=== PATIENT | male | born 1970 | race Caucasian/White ===

== ENCOUNTER → 2023-08-05 | Outpatient (CLI) | payer OTHER | END | disposition home or self-care (01) | LOC: LABPAT 10:08 | PROVIDERS: ATTEND Orthopaedic Surgery | DX: Z01.812 Encounter for preprocedural laboratory examination (principal); M47.22 Other spondylosis with radiculopathy, cervical region; M48.02 Spinal stenosis, cervical region; M54.2 Cervicalgia; Z22.322 Carrier or suspected carrier of Methicillin resistant Staphylococcus aureus | CPT/HCPCS: 36415; 86850; 86900; 86901; 87070 ==

== ENCOUNTER 2023-08-12 10:23 | Day surgery (SDC) | payer OTHER ==
[2023-08-05 14:00] VITALS: BMI 26.4
--- NOTE | 2023-08-12 08:20 | P.HPOR ---
History of Present Illness H&P Date: 09/05/23 .D:Date: 08/05/23 : 09:36am .T:Title: [facility] History and Physical Date of :[birth year] [id number]: NKDA Age: 53 year Height: 5'11" Weight: 190 lbs BMI: 26.50 kg/m2 Occupation: n/a VAS: 4 Hand:Right IMPRESSION: It was my pleasure to have seen and examined Gaeg. I reviewed the patient's clinical syndrome, physical findings, and imaging studies during the appointment today. It is my impression that the patient has a diagnosis of. 1. 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 Bilateral upper extremity radiculopathy 3. Bilateral upper extremity weakness 4. Cervicalgia I outlined the natural course history without intervention and various interventional options. Spine Surgery Risk Review Mr. Du is presenting for evaluation of neck and bilateral upper extremity pain, bilateral upper extremity numbness, tingling, and weakness. It was my pleasure to have seen and examined Mr. Du. In our visit today we have had a chance to go over subjective complaints, physical examination findings and treatments including the natural course history without intervention and various interventional options. The patients imaging demonstrates: XRay taken on of Cervical Spine: -Re-reviewed with the patient today. Demonstrate C5-6 and C6-7 spondylosis with disc height collapse. Some facet arthrosis. No fracture no lesions. C0-1 and C1-[address] [facility] Cervical Spine: -Re-reviewed with the patient today. Images reviewed demonstrate C5-C7 spondylosis with disc height collapse as well as facet arthropathy. There is local kyphosis at this level secondary to the collapse. There is disc herniation at both these levels causing moderate to severe central and bilateral foraminal stenosis [facility] of Cervical Spine: -Re-reviewed with the patient today. C5-6 large HNP with stenosis central and b/l foraminal C6-7 HNP with mild central and b/l foraminal stenosis remaining levels of normal height and hydration with no stenosis. No fracture No lesions On physical exam, Mr. Du demonstrates: A continued ache-like, burning pain throughout the neck that radiates down into the bilateral upper extremity with a sharp, shooting quality. He states his upper extremity pain is associated with numbness and tingling bilaterally. He notes progressive upper extremity weakness. The patient notes mildly decreased hand dexterity over the last 2 to 3 weeks. The patient states his current symptoms are exacerbated by all activity. He notes his current symptoms make it difficult for him to complete any of his activities of daily living. He reports experiencing severe sleep disturbances related to his ongoing pain and associated symptoms. I have explained to the patient that as their condition progresses it will cause further neurological deficits and eventual paralysis. Based on the patients imaging, physical exam, and the rapid progression and disabling nature of their symptoms, at this time I recommend surgery in the form of a: C5-7 ACDF. I discussed the risk and benefits of this procedure at length with Mr. Du. The patient agreed to considered pursuing the procedure abovementioned. Prior to surgery, she should follow up with her PCP (Cardio, ID, IM etc) for clearance. Questions were invited and answered, and the patient wishes to proceed as outlined below. Currently, I am recommendin.C5-7 ANTERIOR CERVICAL DISCECOMTY AND FUSION 3.Review of surgical risks and benefits as well as an educational packet on the proposed surgical procedure. Risks: All surgical procedures come with inherent risks, including those related to positioning, anesthesia, intraoperative findings, and postoperative compli cations. It is important to understand that surgery does not come with any guarantee of a successful outcome as complications and adverse events are always possible. The patient was given a handout in office today discussing the surgical procedure and risks associated with the intervention, both of which were discussed with the patient. These risks include but are not limited to the following: * Experiencing same, different or even worse symptoms in back, neck, arms, or legs compared to before surgery. Requiring further surgery or other forms of treatment presently or at some time in the future at same or other levels of the intended spine surgery. On an extreme but fortunately relatively rare basis severe complication such as blindness, stroke, heart attack, temporary and/or permanent nerve injury, paralysis, coma, or may occur, sometimes without known explanation. Surgical complications may include but are not limited to risk of infection, fluid accumulation in the surgical dissection site, including a seroma or hematoma, that requires additional surgery, wound drainage, bleeding, new numbness or weakness, vision changes/loss, spinal fluid leakage, non-healing and/or infected incision, headaches, difficulty or inability to swallow, hoarseness, hemopneumothorax, pneumothorax, impotence, retrograde ejaculation, vaginal dryness; injury to nerves, spinal cord, blood vessels, lymphatics or other vital organs (i.e., bowel injury, injury to the great vessels); heterotopic bone formation; complications related to the hardware such as screws, rods, cages including misplaced hardware, device failure, instrumentation at the wrong spine level, hardware fracture/breakage, or hardware loosening; vertebral failure of the spinal column above or below the newly placed hardware; retained surgical instrumentations or devices and the need for further surgery. * Medical risks of the planned spine surgery include but are not limited to generalized Infections to the whole body or local areas outside of the surgical site (sepsis), heart attack, bleeding, anaphylaxis, meningitis, seizure, epilepsy, hearing loss, burn john, laceration of the head or other areas of the body, bruising, hypersensitivity of the skin, bladder over distension; allergic reaction; shoulder injury related to positioning; fat, blood and air clots to other areas of the body like heart, lungs, brain; failure of internal organs such as lungs, kidneys, liver and excessive bleeding. If blood transfusions are necessary, note that transfusions may cause intolerance reactions such as anaphylaxis or other complex reactions. Despite best efforts, the results of spine surgery might not heal in terms of bone, soft tissues such as skin, fascia, ligaments, and joints. Additionally, in order to achieve best possible results, spine surgery may be carried out beyond the initially planned levels and involve decompression, fusion including insertion of hardware at levels other than the original intended area of surgical interest change some portions of the procedure in order to ensure the best possible outcomes. With spine surgery and spinal fusion, there are different off label uses of inst rumentation (devices, implants and hardware) as well as biological substances (bone morphogenic proteins, demineralized bone matrix) as well as using extra bone from allograft sources (i.e. cadaver bone) or autograft (iliac crest bone, ribs, or the spine itself). The patient has been given information about these practices and their inherent risks and benefits. [facility] is an educational center that serves as a training facility for neurosurgical and orthopedic [employer] and Nursing students. Physician assistants are medically trained surgical providers who function in the outpatient, inpatient, and operating room setting under the direct supervision of the attending surgeon. [facility] has multiple operating rooms with single and overlapping rooms running daily. They currently function under the required guidelines as produced by the [facility] with regards to the overlapping rooms and will continue to comply with changes to this policy as they occur. The requirements include and are complied with as follows: (1) the critical portions of the overlapping rooms will not occur at the same time, (2) the attending physician will be physically present during the critical portions of the procedure and immediately available during the entire case, and (3) a back-up attending is designated should the primary attending not be immediately available. The patient has had a chance to review all the listed information, has been given print outs detailing this information, and has had all his/her questions answered to their satisfaction. It was my pleasure to have seen and examined Mr. Du. In our visit today we have had a chance to go over my understanding of our patient's current condition, the natural course history without intervention and various interventional options. Questions were invited and answered, and the patient wishes to proceed as outlined above. I have seen and examined the patient for 25 minutes and we have spent more than 50% of the time in repeat and detailed counseling about the patient's condition, its natural course history with out and as much as can be predicted with surgery and re-review of various surgical treatment options. In conclusion, Mr. Du requested we proceed with the above suggested surgery and are willing to accept risks and limitations of the suggested surgery as nature of the disease process and our best attempts at treatment for the condition. Thank you again for allowing us to be part of your patient's care. Please don't hesitate to contact me if you have any further questions. Follow- up: Post procedure Patient Education: (Informational booklet, instructions, etc) given at today's appointment: Yes .ED:Patient Education: Y Plan at next visit: X-ray (AP & Lat) Cervical Spine Medications Reviewed: YES In our visit today Mr. Du and I have had a chance to go over my understanding of the patient's current condition, the natural course history without intervention and various interventional options. Questions were invited and answered, and the patient wishes to proceed as outlined above. I will be sure to keep you updated afterMr. Du returns here for further follow-up. Thank you again for your referral. Please do not hesitate to contact me if you have any further questions. Signed and authenticated by: Scot Pritchard [facility] [address] [place] [address] This message is confidential, intended only for the named recipient(s) and may contain information that is privileged or exempt from disclosure under applicable law. If you are not the intended recipient(s), you are notified that the dissemination, distribution or copying of this information is strictly prohibited. If you received this message in error, please notify the sender then delete this message. Patient verbalizes understanding of the information discussed. The above note was initiated by Shanelle Hernandez, physician recording psychiatric assistant for Dr. Scot Crews. This note has been reviewed by Dr. Crews, who has made his personal changes and impressions for this document. CC: DO Jairo Hernández # SIGNED BY Scot Crews (GOO)08/10/2023 08:09AM Past Medical History Past Medical History: COPD, Hypertension, Musculoskeletal Disorder, Osteoa rthritis (OA) Additional Past Medical History / Comment(s): Degenerative bone disease. History of Any Multi-Drug Resistant Organisms: None Reported Past Surgical History: No Surgical Hx Reported Additional Past Surgical History / Comment(s): Colonoscopy. Past Anesthesia/Blood Transfusion Reactions: No Reported Reaction Past Psychological History: No Psychological Hx Reported Smoking Status: Former smoker Past Alcohol Use History: Occasional Additional Past Alcohol Use History / Comment(s): "Quit smoking one month ago, smoked on and off most of my life." Past Drug Use History: Marijuana Additional Drug Use History / Comment(s): Marijuana gummies daily. aawre no use 24 hrs prior to procedure. - Past Family History Father Family Medical History: Cancer Additional Family Medical History / Comment(s): Neck cancer. Sister(s) Family Medical History: Cancer Additional Family Medical History / Comment(s): Breast cancer. Brother(s) Family Medical History: Cancer Additional Family Medical History / Comment(s): Neck cancer. Medications and Allergies Home Medications Medication Instructions Recorded Confirmed Type Albuterol Sulfate [Ventolin HFA] 2 puff INHALATION Q4-6H PRN 08/05/23 08/05/23 History Budesonide/Glycopyr/Formoterol 2 puff INHALATION BID 08/05/23 08/05/23 History [Breztri Aerosphere Inhaler] Cyclobenzaprine [Flexeril] 10 mg PO HS 08/05/23 08/05/23 History Gabapentin [Neurontin] 100 mg PO BID 08/05/23 08/05/23 History HYDROcodone/APAP 10-325MG [[place] 1 tab PO QID PRN 08/05/23 08/05/23 History 10-325] Losartan Potassium [Cozaar] 100 mg PO DAILY 08/05/23 08/05/23 History hydroCHLOROthiazide 25 mg PO DAILY 08/05/23 08/05/23 History Allergies Allergy/AdvReac Type Severity Reaction Status Date / Time No Known Allergies Allergy Verified 08/05/23 13:13 Physical Examination Osteopathic Statement: *. No significant issues noted on an osteopathic structural exam other than those noted in the History and Physical/Consult.
[~2023-08-12 10:23] MED LIST: ACETAMINOPHEN TAB 500 MG TAB PO PRN; GABAPENTIN 300 MG CAP PO PRN; LIDOCAINE 1% (10MG/ML) FOR IV START INTRADERMA PRN; MIDAZOLAM 2 MG/2 ML VIAL IV PRN; ONDANSETRON 4 MG/2 ML VIAL IVP PRN; TRANEXAMIC 1,000 MG/100ML-NACL 1,000 MG in SALINE 1 100ML.BAG IVPB PRN
[2023-08-12] MEDS: LACTATED RINGERS 1,000 ML IV SCH ×4 (11:17→20:23)
[2023-08-12] MEDS: ONDANSETRON 4 MG/2 ML VIAL IVP ONE ×2 (11:39→16:38)
[2023-08-12] MEDS: DEXAMETHASONE SOD PHOSPHATE 4 MG/ML 1 ML VIAL IV ONE ×2 (11:39→16:38)
[2023-08-12] MEDS ORDERED: ROCURONIUM 10 MG/ML (5 ML VIAL) IV ONE (12:36)
[2023-08-12] MEDS ORDERED: MIDAZOLAM 2 MG/2 ML VIAL ONE (12:36)
[2023-08-12] MEDS ORDERED: HYDROmorphone (PF) 1 MG/ML ONE (12:36)
[2023-08-12] MEDS ORDERED: LIDOCAINE 1% INJ 10MG/ML (20 ML MDV) ONE (12:36)
[2023-08-12] MEDS ORDERED: PHENYLEPHRINE 10 MG/ML VIAL ONE (12:36)
[2023-08-12] MEDS ORDERED: KETAMINE HCL IN 0.9 % NACL 50 MG/5 ML SYRINGE ONE (12:36)
[2023-08-12] MEDS ORDERED: TRANEXAMIC 1,000 MG/100ML-NACL PREMIX BAG ONE (12:36)
[2023-08-12] MEDS ORDERED: PROPOFOL 10 MG/ML 20 ML VIAL IV ONE (12:36)
[2023-08-12] MEDS ORDERED: SUCCINYLCHOLINE CHLORIDE 200 MG/10 ML VIAL IV ONE (12:36)
[2023-08-12] MEDS ORDERED: fentaNYL (PF) 50 MCG/ML 2 ML AMP ONE (12:36)
[2023-08-12] MEDS ORDERED: GELATIN SPONGE,ABSORB (LARGE) 1 EACH SPONGE TOPICAL ONE (13:13)
[2023-08-12] MEDS ORDERED: THROMBIN (BOVINE) 5,000 UNIT VIAL TOPICAL ONE (13:13)
--- NOTE | 2023-08-12 14:55 | XR ---
Fluoroscopy History: C5-C7 Fusion C5-C7 fusion with [place]. 20 sec fluoro time. 6 images saved. .2680 DAP
[2023-08-12] MEDS ORDERED: ONDANSETRON 4 MG/2 ML VIAL IVP PRN (15:07)
[2023-08-12] MEDS ORDERED: MAGNESIUM HYDROXIDE 2,400 MG/30 ML CUP PO PRN (15:07)
[2023-08-12] MEDS ORDERED: HYDROmorphone 0.5 MG/0.5 ML SYRINGE IVP PRN (15:07)
--- NOTE | 2023-08-12 15:14 | FL ---
Fluoroscopy History: C5-C7 Fusion C5-C7 fusion with [place]. 20 sec fluoro time. 6 images saved. .8890 DAP
[2023-08-12] MEDS: HYDROmorphone 0.5 MG/0.5 ML SYRINGE IVP PRN ×3 (15:15→15:44)
[2023-08-12] MEDS: CYCLOBENZAPRINE 5 MG TAB PO PRN ×2 (16:08→22:08)
[2023-08-12] MEDS: HYDROmorphone 1 MG/ML 1 ML SYRINGE IVP PRN ×2 (17:25→22:08)
[2023-08-12] MEDS: HYDROcodone/APAP 10-325MG 1 EACH TAB PO PRN (20:19)
--- NOTE | 2023-08-13 00:22 | P.CONS ---
History of Present Illness - Reason for Consult Consult date: 08/12/23 - History of Present Illness Patient is a 53-year-old male with a PMH of hypertension who was admitted for an elective cervical anterior discectomy and fusion. The patient underwent the procedure earlier today and was seen postoperatively on the surgical unit. He reported excellent control of his pain, rated at a 1 out of 10 at the time of interview. He denies any additional complaints. Denied experiencing weakness, numbness, tingling. Also denied chest discomfort, shortness of breath, fever, chills, cough, nausea, vomiting, abdominal pain, diarrhea. Reports compliance with his medications at home. Review of systems: Pertinent positives and negatives as discussed in HPI, a complete review of systems was performed and all other systems are negative. Physical examination: Vital signs reviewed General: non toxic, no distress, appears at stated age, normal weight Derm: no unusual rashes/lesions, warm Head: atraumatic, normocephalic, symmetric Eyes: EOMI, no lid lag, anicteric sclera, pupils equal round reactive to light ENT: Nose and ears atraumatic Neck: Neck brace in place with right anterior neck dressing clean and dry Mouth: no lip lesion, mucus membranes moist Cardiovascular: S1S2 reg, no murmur, positive dorsalis pedis pulse bilateral, no edema Lungs: CTA bilateral, no rhonchi, no rales, no accessory muscle use Abdominal: soft, nontender to palpation, no guarding Ext: muscle strength 5 out of 5 in all 4 extremities grossly, no gross muscle atrophy, no contractures, Neuro: CN II-XI grossly intact, no gross focal neuro deficits Psych: Alert, oriented, appropriate affect Assessment: Chronic conditions: Hypertension Status post anterior cervical discectomy and fusion Plan: Continue with patient's home antihypertensives Defer management of pain control and DVT prophylaxis to the primary surgery service We appreciate this opportunity to be involved in this patient's care. We will follow the patient with you. For any further questions, please not hesitate to contact the sound inpatient team. Past Medical History Past Medical History: COPD, Hypertension, Musculoskeletal Disorder, Osteoarthritis (OA) Additional Past Medical History / Comment(s): Degenerative bone disease. History of Any Multi-Drug Resistant Organisms: None Reported Past Surgical History: No Surgical Hx Reported Additional Past Surgical History / Comment(s): Colonoscopy. Past Anesthesia/Blood Transfusion Reactions: No Reported Reaction Past Psychological History: No Psychological Hx Reported Smoking Status: Former smoker Past Alcohol Use History: Occasional Additional Past Alcohol Use History / Comment(s): "Quit smoking one month ago, smoked on and off most of my life." Past Drug Use History: Marijuana Additional Drug Use History / Comment(s): Marijuana gummies daily. aawre no use 24 hrs prior to procedure. - Past Family History Father Family Medical History: Cancer Additional Family Medical History / Comment(s): Neck cancer. Sister(s) Family Medical History: Cancer Additional Family Medical History / Comment(s): Breast cancer. Brother(s) Family Medical History: Cancer Additional Family Medical History / Comment(s): Neck cancer. Medications and Allergies Home Medications Medication Instructions Recorded Confirmed Type Albuterol Sulfate [Ventolin HFA] 2 puff INHALATION Q4-6H PRN 08/05/23 08/12/23 History Budesonide/Glycopyr/Formoterol 2 puff INHALATION BID 08/05/23 08/12/23 History [Breztri Aerosphere Inhaler] Cyclobenzaprine [Flexeril] 10 mg PO HS 08/05/23 08/12/23 History Gabapentin [Neurontin] 100 mg PO BID 08/05/23 08/12/23 History HYDROcodone/APAP 10-325MG [[place] 1 tab PO QID PRN 08/05/23 08/12/23 History 10-325] Losartan Potassium [Cozaar] 100 mg PO DAILY 08/05/23 08/12/23 History hydroCHLOROthiazide 25 mg PO DAILY 08/05/23 08/12/23 History HYDROcodone/APAP 7.5-325MG [[place] 1 tab PO TID PRN 08/12/23 08/12/23 History 7.5-325] Allergies Allergy/AdvReac Type Severity Reaction Status Date / Time No Known Allergies Allergy Verified 08/12/23 11:31 Physical Exam Vitals: Vital Signs Temp Pulse Pulse Resp BP BP Pulse Ox 08/12/23 21:07 98.3 F 71 18 145/88 96 08/12/23 19:54 98.3 F 71 18 145/88 94 L 08/12/23 17:36 77 155/93 97 08/12/23 17:35 74 143/109 93 L 08/12/23 17:34 73 160/108 95 08/12/23 17:07 88 139/83 95 08/12/23 15:49 81 16 96 08/12/23 15:34 81 16 157/81 97 08/12/23 15:19 80 16 157/88 98 08/12/23 15:04 97.3 F L 80 16 159/89 99 08/12/23 12:05 77 16 109/59 94 L 08/12/23 11:15 98.1 F 67 16 119/65 96 Intake and Output 08/12/23 08/12/23 08/13/23 14:59 22:59 06:59 Intake Total 1450 150 Output Total 170 350 Balance 1280 -200 Intake: IV 1450 150 Output: Urine 120 350 Estimated Blood Loss 50 Other: Voiding Method Toilet Weight 86 kg 86 kg
--- NOTE | 2023-08-13 00:49 | CT ---
EXAMINATION TYPE: CT cervical spine wo con DATE OF EXAM: 08/13/2023 COMPARISON: CT cervical spine April 06, 2023 HISTORY: Post surg. C5-C7. CT DLP: 386.7 mGycm. Automated Exposure Control for Dose Reduction was Utilized. TECHNIQUE: CT scan of the cervical spine is obtained without contrast, axial images are obtained, sa gittal and coronal reformatted images are also reviewed. FINDINGS: Cervical spine is visualized in its entirety from C1 through upper thoracic levels, demonst rates new surgical change with metallic disc material and fusion hardware involving the C5-C6 and C6- C7 vertebral body levels. Vertebral body heights and disc space heights are maintained above and belo w the surgical levels. Surgical hardware position is satisfactory. Evidence of recent surgery with bojorquez bcutaneous gas along the right aspect of the neck. There is percutaneous surgical drainage catheter t erminating at level of the C5-C6 disc space level in the right neck axial image 86. Spinal canal is g rossly preserved. Lung apices are clear without pneumothorax. Improved alignment after surgical duval e noted. IMPRESSION: Post surgical change as detailed above. Hardware position felt satisfactory.
[2023-08-13] MEDS: HYDROmorphone 1 MG/ML 1 ML SYRINGE IVP PRN ×2 (03:19→08:37)
[2023-08-13] MEDS: HYDROcodone/APAP 10-325MG 1 EACH TAB PO PRN ×2 (05:54→12:29)
[2023-08-13] MEDS: CYCLOBENZAPRINE 5 MG TAB PO PRN (05:55)
[2023-08-13 07:07] LABS: Basophils % (A) 0 %; Eosinophils % (A) 0 %; HCT 42.3 % (39.0-53.0); HGB 14.7 gm/dL (13.0-17.5); Lymphocytes # (A) 1.6 k/uL (1.0-4.8); Lymphocytes % (A) 9 %; MCH 31.2 pg (25.0-35.0); MCHC 34.8 g/dL (31.0-37.0); MCV 89.7 fL (80.0-100.0); Mean Platelet Volume 10.5; Monocytes # (A) 0.8 k/uL (0-1.0); Monocytes % (A) 5 %; Neutrophils # (A) 14.6 k/uL (1.3-7.7); Neutrophils % (A) 83 %; Platelet Count 195 k/uL (150-450); RBC 4.72 m/uL (4.30-5.90); RDW 12.3 % (11.5-15.5); WBC 17.6 k/uL (3.8-10.6)
--- NOTE | 2023-08-13 07:19 | P.OP ---
Date of Procedure: 08/12/23 Preoperative Diagnosis: 1. C5-7 spondylosis with stenosis 2. C5-6 and C6-7 HNP with stenosis and radiculopathy 3. UE radiculopathy 4. UE weakness Postoperative Diagnosis: 1. C5-7 spondylosis with stenosis 2. C5-6 and C6-7 HNP with stenosis and radiculopathy 3. UE radiculopathy 4. UE weakness Procedure(s) Performed: 1. C5-6 anterior interbody arthrodesis 2. C6-7 anterior interbody arthrodesis 3. C5-6 and C6-7 insertion of biomechanical device 4. Placement of anterior instrumentation achoring screws C5-6 and C6-7 use of IONM Use of IO microscope Implants: 4 senior anterior cervical interbody spacers x2 magnatos 3.5x14 anterior instrumenting anchors x4 Anesthesia: MILLIE Surgeon: Scot Crews Tool Design Drafter #1: Emi Campo (WAS PRESENT AND ASSISTED WITH ALL ASPECTS OF THE CASE FROM POSITION TO CLOSURE) Estimated Blood Loss (ml): 25 IV fluids (ml): 1,400 Urine output (ml): 250 Pathology: none sent Condition: stable Disposition: PACU Indications for Procedure: Mr. Du is presenting for evaluation of neck and bilateral upper extremity pain, bilateral upper extremity numbness, tingling, and weakness. It was my pleasure to have seen and examined Mr. Du. In our visit today we have had a chance to go over subjective complaints, physical examination findings and treatments including the natural course history without intervention and various interventional options. The patients imaging demonstrates: XRay taken on of Cervical Spine: -Re-reviewed with the patient today. Demonstrate C5-6 and C6-7 spondylosis with disc height collapse. Some facet arthrosis. No fracture no lesions. C0-1 and C1-[address] [facility] of Cervical Spine: -Re-reviewed with the patient today. Images reviewed demonstrate C5-C7 spondylosis with disc height collapse as well as facet arthropathy. There is local kyphosis at this level secondary to the collapse. There is disc herniation at both these levels causing moderate to severe central and bilateral foraminal stenosis [facility] of Cervical Spine: -Re-reviewed with the patient today. C5-6 large HNP with stenosis central and b/l foraminal C6-7 HNP with mild central and b/l foraminal stenosis remaining levels of normal height and hydration with no stenosis. No fracture No lesions On physical exam, Mr. Du demonstrates: A continued ache-like, burning pain throughout the neck that radiates down into the bilateral upper extremity with a sharp, shooting quality. He states his upper extremity pain is associated with numbness and tingling bilaterally. He notes progressive upper extremity weakness. The patient notes mildly decreased hand dexterity over the last 2 to 3 weeks. The patient states his current symptoms are exacerbated by all activity. He notes his current symptoms make it difficult for him to complete any of his activities of daily living. He reports experiencing severe sleep disturbances related to his ongoing pain and associated symptoms. I have explained to the patient that as their condition progresses it will cause further neurological deficits and eventual paralysis. Based on the patients imaging, physical exam, and the rapid progression and disabling nature of their symptoms, at this time I recommend surgery in the form of a: C5-7 ACDF. I discussed the risk and benefits of this procedure at length with Mr. Du. The patient agreed to considered pursuing the procedure abovementioned. Prior to surgery, she should follow up with her PCP (Cardio, ID, IM etc) for clearance. Questions were invited and answered, and the patient wishes to proceed as outlined below. Currently, I am recommendin.C5-7 ANTERIOR CERVICAL DISCECOMTY AND FUSION Description of Procedure: C5-7 ACDF (Stand Alone) The patient was seen and examined in the preoperative area. All preoperative protocols were followed. Informed consent was obtained, risks and benefits of the procedure were discussed at length. Risks including bleeding infection damage to the surrounding tissue and risk of reoperation were discussed with the patient. Risk of anesthesia up to and including was discussed with the patient. These are outlined in the risk review. They were willing to accept these risks and all the risks of surgery. The patient was given a weight-based dose of antibiotics in the form of 2 g Ancef. The patient was seen and evaluated by the anesthesia team who deemed them fit for surgery. The site was marked, the patient was willing to proceed with the procedure. The patient was transferred to the operative suite by the Department of anesthesia. They were then drifted off to sleep by the department anesthesia and GETA was performed. The patient tolerated this well. Lyle catheter was placed by nursing staff, a-traumatically. Once confirmation of lines and ventilation the patient was transferred to a Supine Emmett table very carefully. All bony prominences including wrists, elbows, axilla, chest, hips, and thighs, and feet were padded very well. Special attention was paid to the genitalia, and these were padded accordingly. SCDs were placed on bilateral lower extremities and were connected. Arms were well padded and placed at their side thumbs up. Once in position, again we confirmed good ventilation capabilities and that lines were running appropriately. The patients Cervical spine was then exposed. 1010s were placed outlining the incision site. Standard alcohol was used to clean the incision site and allowed to dry. C-arm was used to bio-tita the patient and confirm level for incision which was marked with a skin marker. Operative briefing was performed with all teams and everyone in agreement to proceed. The patient was then prepped and draped in a normal sterile fashion. Timeout was then performed, and all parties agreed with the procedure to be performed. Transverse skin incision was then made on the right side of the patient's neck 3 cm and dissection taken down to the platysma which was split transversely. Sub platysma flap was made, and interval identified between SCM and medial structures. Omohyoid was visualized and protected. Blunt dissection taken down to the anterior cervical fascia which was identified. Blunt probe was then placed and lateral image taken which confirmed levels for operation. These levels were then marked with a bovi. Subperiosteal dissection of the longissimus muscles were then done over these levels identifying uncovertebral joints bilaterally. Retractor was then placed deep to these muscles and held in place with a bed arm. Starting at C6-7, Sumner pins were placed into C6 and C7 and gentle distraction taken out over the levels. Maureen rongeur used to remove disc material. Operating microscope brought in for visualization. Complete discectomy performed at this level with curette, rongure and pituitary. High speed donnie used to remove osteophytes anteriorly and posteriorly until PLL was identified. 6-0 up curette then used to identify the canal and resect the PLL. 2-0 and 3-0 Kerrison used then to remove PLL and disc herniation and performed b/l foraminotomies. Once good decompression was accomplished, meticulous hemostasis was performed. Sizers were then placed under lateral fluoroscopy until the desired height and lordosis. Cage was then selected, packed with autograft and allograft and placed under lateral imaging. Once in good position it was tested and stable. Motors run before and after cage placement were stable. The wound was irrigated, and autograft placed lateral to the cage anteriorly for fusion. Sumner pin was then removed from C7 and placed into C5. Gentle distraction taken out over C5-6 now. Complete discectomy done at C5-6 as described including decompression, b/l foraminotomies and PLL resection. Burring of endplates was minimal, osteophytes removed as described. Spacers were then sized and placed under lateral imaging. Cage selected, packed with graft and placed under lateral images. Once in position, meticulous hemostasis performed, and motors remained stable before and after cage placement. AP image confirmed good placement of cages. Wound was irrigated. After each cage placement, anterior instrumenting screws were placed through the cage with good purchase using lateral imaging. The screws were placed inferiorly and superiorly and locked. All locking mechanisms were set, and all screws had good purchase. Final AP and lateral images taken confirmed good placement of hardware and good reduction and buddhist of height. The wound was then irrigated copiously with NSS. Surgicel placed deep in the wound. A deep drain placed out a separate incision and sewed into place. Layered closure then performed with 3-0 Vicryl in the platysma and subQ tissue. 4-0 Strata fix in the subcuticular tissue. The wound was then cleaned, and dried and skin glue placed. Once glue dried on Opifoam was placed. The patient was then transferred back to their hospital bed a-traumatically. The drain continued to hold suction. They were placed in a soft collar. They were then awakened by the department of anesthesia having tolerated the procedure well without complications.
[2023-08-13 07:50] VITALS: BP 136/86; PULSE 77; RESP 17; TEMP 98.5
[2023-08-13 08:04] LABS: African American GFR (CKD) >90 (>60 ml/min/1.73 sqM); Anion Gap 8 mmol/L; Blood Urea Nitrogen 14 mg/dL (9-20); Calcium 8.7 mg/dL (8.4-10.2); Carbon Dioxide 26 mmol/L (22-30); Chloride 99 mmol/L (98-107); Glucose 96 mg/dL (74-99); Non-African American GFR(CKD) >90 (>60 ml/min/1.73 sqM); Potassium 3.9 mmol/L (3.5-5.1); Sodium 133 mmol/L (137-145)
[2023-08-13] MEDS ORDERED: hydroCHLOROthiazide 25 MG TAB PO SCH (09:00)
[2023-08-13] MEDS ORDERED: NON FORMULARY DRUG (Budesonide/Glycopyr/Formoterol [Breztri Aerosphere Inhaler] 10.7 GM Gm INHALATION SCH (09:00)
[2023-08-13] MEDS ORDERED: SENNOSIDES-DOCUSATE SODIUM 1 EACH TAB PO SCH (09:00)
[2023-08-13] MEDS ORDERED: LOSARTAN 50 MG TAB PO SCH (09:00)
--- NOTE | 2023-08-13 12:20 | P.PN ---
Subjective Progress Note Date: 08/13/23 Principal diagnosis: 1. 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 Bilateral upper extremity radiculopathy 3. Bilateral upper extremity weakness 4. Cervicalgia Patient seen and examined this morning. Patient is resting comfortably in bed. Patient states that his pain has been controlled on current regimen. Surgical incision to the anterior cervical spine is well-approximated with glue intact. EDILSON drain has been removed. New surgical dressing has been applied. Patient does report improvement of his bilateral upper extremity symptoms since the procedure. Patient is looking forward to being discharged later today. Continue to encourage patient to use incentive spirometer. No acute concerns. Objective - Vital Signs Vital signs: Vital Signs Temp 98.5 F 08/13/23 06:59 Pulse 77 08/13/23 06:59 Resp 17 08/13/23 06:59 BP 136/86 08/13/23 06:59 Pulse Ox 98 08/13/23 06:59 FiO2 Intake & Output 08/12/23 08/13/23 08/13/23 18:59 06:59 18:59 Intake Total 1600 Output Total 520 Balance 1080 Weight 86 kg Intake: IV 1600 Output: Urine 470 Estimated Blood Loss 50 Other: Voiding Method Toilet Toilet # Voids 2 - Exam Inspection: Negative for any open fractures, ecchymosis, significant erythema/ulcers. Surgical incision to the anterior cervical spine, edges are well-approximated with glue intact. EDILSON drain has been removed, new surgical dressing applied. Sensation: Sensation is equal, symmetric, bilaterally intact throughout the upper and lower extremities Palpation: Nontender to palpation throughout bilateral upper and lower extremiti es and throughout spine exam Range of motion: Patient does have full range of motion bilateral upper and lower extremities on exam Motor: 4/5 in all major motor groups in the bilateral upper and 5/5 in lower extremities Special tests: Negative Homans bilaterally. Negative Erich bilaterally. Negative clonus bilaterally. Neurovascular: Radial pulse intact, 2+ bilaterally. Cap refill under 3 seconds in digits upper extremities. - Labs CBC & Chem 7: 08/13/23 06:10 08/13/23 06:10 Labs: Abnormal Lab Results - Last 24 Hours (Table) 08/13/23 08/13/23 Range/Units 06:10 06:10 WBC 17.6 H (3.8-10.6) k/uL Neutrophils # 14.6 H (1.3-7.7) k/uL Sodium 133 L (137-145) mmol/L Assessment and Plan Assessment: Postop day 1: C5-C7 ACDF 1. 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 Bilateral upper extremity radiculopathy 3. Bilateral upper extremity weakness 4. Cervicalgia Plan: -Appreciate weight loss consultant and team management. -Activity: Ambulate QID, OOB all meals, up and about, limit lifting bending twisting to less than 5 lbs. Use walker or cane if needed for stability. -Daily PT/OT, increase ambulation strength and balance. -Hard cervical collar when up and about, soft cervical collar may be worn at night. Will reevaluate at 2-week postop appointment -Pain control: Adequate at this time -Meds: reviewed -GI ppx: senna, Miralax -DVT PPX: OK to restart Heparin tonight -Hygiene: Shower today. Maintain dressing clean and dry. -Encourage IS 10x/hr -Dispo: Anticipate discharge home today *I reviewed and discussed this case with my attending Dr. Crews, whom has reviewed this chart and films and is in agreement with assessment and plan of care as outlined above. I have personally seen and examined the patient, performed the documentation and the assessment and plan as written. Number of minutes spent on the visit: 20m.
--- NOTE | 2023-08-13 12:26 | P.PN ---
Subjective Progress Note Date: 08/13/23 Patient is a 53-year-old male with a PMH of hypertension who was admitted for an elective cervical anterior discectomy and fusion. Underwent surgery on 08/12. [facility] consulted for medical management of this patient. 08/13 Patient was seen and examined. Upset that people keep waking him up. Reports moderate pain in his neck. Last used Dilaudid at 8:37AM. CBC WBC 17.6. BMP Na 133. General: Non toxic, no distress, appears at stated age Derm: Warm, dry Head: Atraumatic, normocephalic, symmetric, C-spine collar intact Eyes: EOMI, no lid lag, anicteric sclera Mouth: No lip lesion, mucus membranes moist Cardiovascular: good distal perfusion in all 4 extremities Lungs: breathing comfortably, no accessory muscle use Ext: No gross muscle atrophy, no edema, no contractures Neuro: no focal neuro deficits Psych: Alert and oriented x 3 Based on my assessment of this patient, this patient meets a moderate complexity level of care. Patient has a chronic diagnosis of HTN and COPD. Leukocytosis: Probably reactive. No signs of active infection. Monitor fever profile. HypoNa: Mild. Encourage hydration by mouth. HTN: Continue Losartan 100 mg PO QD, HCTZ 25 mg PO QD. COPD: Albuterol INH PRN for SOB/wheezing. Restart Breztri INH on discharge. Medically stable for discharge. CODE STATUS: FULL CODE. DVT Prophylaxis: SCD GI Prophylaxis: Designated medical POA if patient is not able to make medical decisions for themselves: I have reviewed the following technology methodology consultant notes: Ortho note. I have reviewed the results of the following tests: CBC, BMP. I have ordered the following tests: I have discussed the care of this patient with the following independent historian: I have independently interpreted the following test below: I have discussed the management of this patient with the following physician: Objective - Vital Signs Vital signs: Vital Signs Temp 98.5 F 08/13/23 06:59 Pulse 77 08/13/23 06:59 Resp 17 08/13/23 06:59 BP 136/86 08/13/23 06:59 Pulse Ox 98 08/13/23 06:59 FiO2 Intake & Output 08/12/23 08/13/23 08/13/23 18:59 06:59 18:59 Intake Total 1600 Output Total 520 Balance 1080 Weight 86 kg Intake: IV 1600 Output: Urine 470 Estimated Blood Loss 50 Other: Voiding Method Toilet Toilet # Voids 2 - Labs CBC & Chem 7: 08/13/23 06:10 08/13/23 06:10 Labs: Abnormal Lab Results - Last 24 Hours (Table) 08/13/23 08/13/23 Range/Units 06:10 06:10 WBC 17.6 H (3.8-10.6) k/uL Neutrophils # 14.6 H (1.3-7.7) k/uL Sodium 133 L (137-145) mmol/L
--- NOTE | 2023-08-13 14:52 | P.DS ---
Providers Date of admission: 08/12/23 Expected date of discharge: 08/13/23 Attending physician: Scot Crews DO Consults: 08/12/23 15:12 Consult Physician Routine Consulting Provider: Brenda Montero Consult Reason/Comments: Medical Management Do you want consulting provider notified?: Yes Primary care physician: Jairo Liu DO Hospital Course: Hospital Course: The patient was evaluated preoperatively and found to have the diagnosis of cervical spondylosis with stenosis. They underwent appropriate preoperative care and were willing to undergo the intended procedure. They underwent a successful C5-C7 ACDF, were recovered appropriately and sent to the floor. While on the floor they worked with physical therapy, occupational therapy and nursing to enhance their recovery experience. Their pain was well controlled through their stay and they were started on appropriate medications, DVT ppx modalities, activity and dietary needs. Daily labs were monitored closely, and transfusions were only used when necessary. Medicine as well as other consulting services have made their input and have helped with our team approach and multidisciplinary care. PT milestones have been met and passed and they have made the recommendation of home for this patient and treating providers agree with this care path. The patient will be discharged home with appropriate me dications, instructions and follow-up information and in stable condition. Patient Condition at Discharge: Good Plan - Discharge Summary Discharge Rx Participant: Yes New Discharge Prescriptions: New cefaDROXiL [Duricef] 500 mg PO Q12HR #10 cap Cyclobenzaprine [Flexeril] 10 mg PO TID PRN #60 tab PRN Reason: Muscle Spasm oxyCODONE HCL [oxyCODONE HCL (IR)] 5 mg PO Q4H PRN #40 cap PRN Reason: Pain Ondansetron [Zofran] 4 mg PO Q8HR PRN #10 tab PRN Reason: Nausea Sennosides/Docusate Sodium [Senna Plus 8.6-50 mg Tablet] 1 each PO DAILY PRN #20 tablet PRN Reason: Constipation Continue Cyclobenzaprine [Flexeril] 10 mg PO HS Losartan Potassium [Cozaar] 100 mg PO DAILY Gabapentin [Neurontin] 100 mg PO BID HYDROcodone/APAP 7.5-325MG [Nelson 7.5-325] 1 tab PO TID PRN PRN Reason: Pain hydroCHLOROthiazide 25 mg PO DAILY Budesonide/Glycopyr/Formoterol [Breztri Aerosphere Inhaler] 2 puff INHALATION BID Albuterol Sulfate [Ventolin HFA] 2 puff INHALATION Q4-6H PRN PRN Reason: Shortness Of Breath HYDROcodone/APAP 10-325MG [[place] 10-325] 1 tab PO QID PRN PRN Reason: Pain Discharge Medication List Albuterol Sulfate [Ventolin HFA] 2 puff INHALATION Q4-6H PRN 08/05/23 [History] Budesonide/Glycopyr/Formoterol [Breztri Aerosphere Inhaler] 2 puff INHALATION BID 08/05/23 [History] Cyclobenzaprine [Flexeril] 10 mg PO HS 08/05/23 [History] Gabapentin [Neurontin] 100 mg PO BID 08/05/23 [History] HYDROcodone/APAP 10-325MG [[place] 10-325] 1 tab PO QID PRN 08/05/23 [History] Losartan Potassium [Cozaar] 100 mg PO DAILY 08/05/23 [History] hydroCHLOROthiazide 25 mg PO DAILY 08/05/23 [History] HYDROcodone/APAP 7.5-325MG [[place] 7.5-325] 1 tab PO TID PRN 08/12/23 [History] Cyclobenzaprine [Flexeril] 10 mg PO TID PRN #60 tab 08/13/23 [Rx] Ondansetron [Zofran] 4 mg PO Q8HR PRN #10 tab 08/13/23 [Rx] Sennosides/Docusate Sodium [Senna Plus 8.6-50 mg Tablet] 1 each PO DAILY PRN #20 tablet 08/13/23 [Rx] cefaDROXiL [Duricef] 500 mg PO Q12HR #10 cap 08/13/23 [Rx] oxyCODONE HCL [oxyCODONE HCL (IR)] 5 mg PO Q4H PRN #40 cap 08/13/23 [Rx] Follow up Appointment(s)/Referral(s): Scot Crews DO [Doctor of Osteopathic Medicine] - 2 Weeks Patient Instructions/Handouts: Cervical Spinal Stenosis (DC) Activity/Diet/Wound Care/Special Instructions: Spine Discharge and Recovery Instructions Date of Surgery: 08-12-23 Diagnosis: Cervical spondylosis with stenosis Procedure: C5-C7 ACDF Medications: See medication list All medication refills should be obtained through your primary care doctor or your clinic spine surgeon. Please discuss prescription refills at your follow up appointment. Do not call the hospital for medication refills. Activity: Encourage ambulation with assist of walker, Up and about 6-8x daily PT/OT daily work on balance, strength and mobility Up in chair with all meals Shower daily Brace: Use brace when up and about, do not wear in bed or shower Dressing: Leave your dressing in place for a total of 3 days post operatively. Then you may remove your dressing and leave open to air. Keep the area clean and if not able to keep area clean, then cover with sterile gauze and tape. Showering: You may shower 3 days after your procedure allowing soap and water to run over incision. Do not scrub. Do not soak. Blot dry. Follow up: Please confirm a follow up appointment with your surgeon 2 weeks post operatively. Please make an appointment to follow up with your PCP in 1-2 weeks after surgery for evaluation `3 phase, 3-week plan POST OP WEEKS 1-3 1. Lifting/carrying/pushing/pulling limited to less than 5 pounds. 2. Do not sit for longer than 15 minutes at one time. Get up and walk around. Prolonged sitting is NOT advised. If you lay down, see if you can tolerate laying down on you front (belly side) 3. Walk for periods of 15 minutes = 1 mile but no longer; do it multiple times times each day. 4. Ice your low back after activity. POST OP WEEKS 3-6 1. Lifting limited to less than 20 pounds. 2. Do not sit for longer than 30 minutes at a time. Frequently change positions. Use a sit-to stand workstation or take frequent breaks from sitting if you have returned to work. 3. Walk for 30 minutes each day. If possible, do these three or more times a day POST OP WEEKS 6+ At your 6-week appointment we will give you a physical therapy referral to focus on a core stabilization and strengthening program. You should also work on leg & buttock strengthening, hamstring & quadriceps stretching, and continue a low impact aerobic activity program such as swimming, walking, or riding a stationary bicycle. During the initial 6 weeks after your surgery, you are at the highest risk of re-injuring your spine. You should generally avoid BLTs (bending, lifting and twisting combination motions) and follow the above guidelines to reduce the chance of reinjury. You can anticipate post op appointments in our office at approximately 3 weeks and 6 weeks after your surgery. INCISION CARE: If your incision is not draining you do NOT need to cover it with a dressing. Keep your incision clean, dry and intact. In most cases, we apply skin glue, salima or sutures to the incision at the time of surgery. This will be like a crust or have the appearance of a scab and will fall off in time on its own. The stitches or salima need to be removed at 3 weeks post op appointment. You may begin to shower 3 days after surgery (this allows the glue to turner well). However, please avoid scrubbing the incision site or peeling off any of the skin glue. This will ensure optimal healing of your incision. Also, during this time avoid soaking the incision area in water - this includes swimming pools, hot tubs or baths. No ointments, lotions or oils on the incision until your surgeon allows. Leave salima, sutures or glue in place. Neurological dysfunction that comes on suddenly can also be a sign of a stroke. Below some common symptoms of a stroke are listed: B - balance difficulty such as sudden onset walking or leaning to one side - NEW E - eye problem such as sudden double vision or trouble seeing on one side - NEW F - Facial weakness or numbness on one side - NEW A - Arm or leg weakness or numbness on one side - NEW S - Slurred speech or difficulty with word finding - NEW T - Time is BRAIN! Call 911 as soon as you recognize these symptoms Diet: Consume a regular diet rich in vegetables and lean protein such as chicken or fish. You should consume in a ratio of approximately 20% fats|40% carbohydrates|40%protein. Vegetables, sweet potatoes, brown rice or quinoa are examples of good carbohydrates. Chips, white bread, cookies and sweets/sugar are examples of bad carbohydrates. Limit your bad carbs, go wild with good carbs. "Life's Simple 7" Guidelines as per [place] [employer] These will help you reclaim your life after surgery and van helper in your recovery, keeping in mind your restrictions. (1) Get Active. Physical activity can help people lose weight, control high blood pressure and cholesterol, feel emotionally better, and sleep better. (2) Control Cholesterol. Avoid a diet high in saturated fat, trans fat, & cholesterol. Limit whole milk & cream, ice cream, butter, egg yolks, processed meats (like sausage and hot dogs), and fatty meats. Choose healthy foods that are low in saturated fat, trans fat and cholesterol which include: Fruits and vegetables, fiber rich grain products (like whole grain pasta and brown rice), lean meat such as chicken, fish, nuts, seeds, and legumes. (3) Eat Better. Eat small portions. Shop at the grocery with a list and do not stray from it. Tips for a healthy diet include: Limit sodium intake to less than 1500mg daily, avoid prepackaged, processed, and fast foods, choose a diet rich in fruits, vegetables, and whole grain, high fiber foods, and limit saturated & cholesterol in your diet. (4) Manage Blood Pressure. If you have high blood pressure, you should have a cuff at home so that you can check your blood pressure regularly. Be sure you have a good cuff. An arm one is generally better than a wrist one. Bring the cuff to a doctor's appointment to validate that the measurements that your cuff are taking are accurate. Take your blood pressure twice daily when you are sitting down and relaxing. Record the numbers in a log and bring this log with you to your doctors' appointments. (5) Lose Weight if your BMI is above 25. A healthy BMI is between 19-25. To calculate Your BMI, you may use a Standard BMI Calculator on the NIH BMI website: <www.nhlbi.nih.gov/guidelines/obesity/BMI/bmicalc.htm>. Weigh oneself daily. If you are overweight, set a goal to lose weight. A pound a week loss if needed is a good target. (6) Reduce Blood Sugar. Limit foods and liquids with "added sugars." (Added sugars include sucrose, fructose, glucose, maltose, dextrose, high fructose corn syrup, corn syrup, concentrated fruit juice and honey). (7) Stop Smoking. If you smoke, quitting smoking is one of the best things that you can do for your health. Smoking increases your risk of heart attack, stroke, and peripheral vascular disease, which is a build-up of plaque in your arteries. Please discard all the cigarettes and lighters in your house. Have a plan for what you will do when you have the urge to smoke. Direct and second- hand smoke shortens your life as well as the lives of your family, friends and others around you. For your health and the health of those around you, please consider quitting! Proper Bending Body Mechanics: Maintain a wide stance with one foot slightly in front of the other. Keep your back straight. Bend utilizing the strength in your hips and knees. Do not bend at the waist. Maintain the lifted object at your waist-level close to your body. Avoid lifting weight that causes immediately pain or pain anywhere in the body afterwards. Smoking/Nicotine If there was ever one thing that you could do to increase your overall health, decrease your risk of cardiovascular problems by about 39% the second you make the choice, it is to STOP SMOKING. Your body's most instant gratification is the second you stop smoking. We have all heard the studies, read the articles but it is true, smoking is extremely bad for your overall health, and moreover it is detrimental to your bone health. Nicotine, IN ANY FORM, kills bone cells, prevents your body from healing fractures, and significantly prolongs healing after surgery. In spine surgery specifically, it increases your risk of not healing your bones to create a fusion and increases your risk of having a revision surgery due to this up to 60%. I know it is hard. I know it feels impossible. But there are ways. Take control of your life. We are here to help you through it. And when you are ready, ask us and we can direct you to help if you desire. Use the START Plan to Quit Smoking (please visit the Helpguide.org website listed below for more information): S = Set a quit date. Choose a date within the next 2 weeks, so you have enough time to prepare w ithout losing your motivation to quit. If you mainly smoke at work, quit on the weekend, so you have a few days to adjust to the change. T = Tell family, friends, and co-workers that you plan to quit. Let your friends and family in on your plan to quit smoking and tell them you need their support and encouragement to stop. Look for a quit saira who wants to stop smoking as well. You can help each other get through the rough times. A = Anticipate and plan for the challenges you'll face while quitting. Most people who begin smoking again do so within the first 3 months. You can help yourself make it through by preparing ahead for common challenges, such as nicotine withdrawal and cigarette cravings. R = Remove cigarettes and other tobacco products from your home, car, and work. Throw away all your cigarettes (no emergency pack!), lighters, ashtrays, and matches. Wash your clothes and freshen up anything that smells like smoke. Shampoo your car, clean your drapes and carpet, and steam your furniture. T = Talk to your doctor about getting help to quit. Your doctor can prescribe medication to help with withdrawal and suggest other alternatives. If you can't see a doctor, you can get many products over the counter at your local pharmacy or grocery store, including the nicotine patch, nicotine lozenges, and nicotine gum. Resources for Quitting Smoking: <https://www.[place].gov/documents/[facility]/Quit_Tobacco_Resources_for_patients_313 480_7.pdf> Supplementation: Take recommended dosages of Vitamin D and Calcium to help fortify your bones and help them to heal. See your health maintenance packet for dosages and recommended levels. DVT/VTE prophylaxis: You will be given compression stockings from the hospital. Wear these daily for the first two weeks after surgery. You may take them off at night. You may be prescribed a medication to help thin your blood. Take this as directed. If you are not prescribed this medication, early and frequent ambulation has been shown to be the best prophylaxis to deep vein thrombosis and sequelae related to this event. Discharge Disposition: HOME SELF-CARE
== END 2023-08-13 13:32 | disposition home or self-care (01) ==
LOC: OR 10:23 → 4SSUR 14:53 → OR 08-13 13:32
PROVIDERS: ATTEND Orthopaedic Surgery
DX: M50.123 Cervical disc disorder at C6-C7 level with radiculopathy (principal); M47.22 Other spondylosis with radiculopathy, cervical region; M48.02 Spinal stenosis, cervical region; F10.90 Alcohol use, unspecified, uncomplicated; M25.78 Osteophyte, vertebrae; J44.9 Chronic obstructive pulmonary disease, unspecified; I10 Essential (primary) hypertension; F12.90 Cannabis use, unspecified, uncomplicated; Z98.890 Other specified postprocedural states; Z98.1 Arthrodesis status; Z87.891 Personal history of nicotine dependence; Z80.8 Family history of malignant neoplasm of other organs or systems; Z80.3 Family history of malignant neoplasm of breast; Z79.51 Long term (current) use of inhaled steroids; Z79.899 Other long term (current) drug therapy
CPT/HCPCS: 80048; 85025; 72040; 72125; 22551; 22552; 22853 ×2; 20930; 20937; 22845; L0120; J2250; J1100; J0690 ×2; J2405; J1170 ×3

== ENCOUNTER 2024-06-26 07:39 | Emergency (ER) | payer OTHER ==
--- NOTE | 2024-06-26 08:09 | ED ---
General Adult HPI - General Chief complaint: Back Pain/Injury Stated complaint: back pain Time Seen by Provider: 06/26/24 07:40 Source: patient Mode of arrival: ambulatory Limitations: no limitations - History of Present Illness Initial comments: Dictation was produced using [employer] dictation software. please excuse any grammatical, word or spelling errors. Chief Complaint: 53-year-old male presents to the emergency department with back pain History of Present Illness: 53-year-old male with chronic back issues presents to the ER with back pain. Patient has been having worsening back pain and tightness for the last several weeks. He has been seeing his chiropractor and being adjusted however not really improving. Denies any saddle anesthesia. No bowel or bladder control issues. States that the pain radiates down his right buttocks down the lateral thigh. Denies any fever, chills or night sweats. No history of IV drug abuse. The ROS documented in this emergency department record has been reviewed and confirmed by me. Those systems with pertinent positive or negative responses have been documented in the HPI. All other systems are other negative and/or noncontributory. - Related Data Home Medications Medication Instructions Recorded Confirmed Albuterol Sulfate [Ventolin HFA] 2 puff INHALATION Q4-6H PRN 08/05/23 08/12/23 Budesonide/Glycopyr/Formoterol 2 puff INHALATION BID 08/05/23 08/12/23 [Breztri Aerosphere Inhaler] Cyclobenzaprine [Flexeril] 10 mg PO HS 08/05/23 08/12/23 Gabapentin [Neurontin] 100 mg PO BID 08/05/23 08/12/23 HYDROcodone/APAP 10-325MG [[place] 1 tab PO QID PRN 08/05/23 08/12/23 10-325] Losartan Potassium [Cozaar] 100 mg PO DAILY 08/05/23 08/12/23 hydroCHLOROthiazide 25 mg PO DAILY 08/05/23 08/12/23 HYDROcodone/APAP 7.5-325MG [[place] 1 tab PO TID PRN 08/12/23 08/12/23 7.5-325] Previous Rx's Medication Instructions Recorded Cyclobenzaprine [Flexeril] 10 mg PO TID PRN #60 tab 08/13/23 Ondansetron [Zofran] 4 mg PO Q8HR PRN #10 tab 08/13/23 Sennosides/Docusate Sodium [Senna 1 each PO DAILY PRN #20 tablet 08/13/23 Plus 8.6-50 mg Tablet] cefaDROXiL [Duricef] 500 mg PO Q12HR #10 cap 08/13/23 oxyCODONE HCL [oxyCODONE HCL (IR)] 5 mg PO Q4H PRN #40 cap 08/13/23 HYDROcodone/APAP 5-325MG [[place] 1 tab PO Q6HR PRN 3 Days #12 tab 06/26/24 5-325] methylPREDNISolone Dose Pack 4 mg PO DIRECTED #1 packet 06/26/24 [Medrol Dose Pack] Allergies Allergy/AdvReac Type Severity Reaction Status Date / Time No Known Allergies Allergy Verified 06/26/24 07:43 Review of Systems ROS Statement: Those systems with pertinent positive or pertinent negative responses have been documented in the HPI. ROS Other: All systems not noted in ROS Statement are negative. Past Medical History Past Medical History: COPD, Hypertension History of Any Multi-Drug Resistant Organisms: None Reported Additional Past Surgical History / Comment(s): Neck fusion Past Psychological History: No Psychological Hx Reported Smoking Status: Never smoker Past Alcohol Use History: Occasional Past Drug Use History: Marijuana General Exam - General Exam Comments Initial Comments: PHYSICAL EXAM: General Impression: Alert and oriented x3, acute distress secondary to back pain HEENT: Normocephalic atraumatic, extra-ocular movements intact, pupils equal and reactive to light bilaterally, mucous membranes moist. Cardiovascular: Heart regular rate and rhythm Chest: Able to complete full sentences, no retractions, no tachypnea Abdomen: abdomen soft, non-tender, non-distended, no organomegaly Musculoskeletal: Pulses present and equal in all extremities, no peripheral edema Motor: no focal deficits noted Neurological: CN II-XII grossly intact, no focal motor or sensory deficits noted Skin: Intact with no visualized rashes Psych: Normal affect and mood Limitations: no limitations Course Vital Signs 06/26/24 06/26/24 07:40 09:20 Temperature 98.1 F 98 F Pulse Rate 63 65 Respiratory 20 18 Rate Blood Pressure 168/103 159/89 O2 Sat by Pulse 98 98 Oximetry Medical Decision Making - Medical Decision Making Was pt. sent in by a medical professional or institution (ELSA Thornton, QUANTITATIVE ANALYST, urgent care, hospital, or residential...) When possible be specific @ -No Did you speak to anyone other than the patient for history (EMS, parent, family, police, friend...)? What history was obtained from this source @ -No Did you review nursing and triage notes (agree or disagree)? Why? @ -I reviewed and agree with nursing and triage notes Were old charts reviewed (outside hosp., previous admission, EMS record, old EKG, old radiological studies, urgent care reports/EKG's, residential records)? Report findings @ -No old charts were reviewed Differential Diagnosis (chest pain, altered mental status, abdominal pain women, abdominal pain men, vaginal bleeding, musculoskeletal, weakness, fever, dyspnea, syncope, headache, dizziness, GI bleed, back pain, seizure, CVA, palpatations, mental health)? @ -Differential Back Pain: Strain, zoster, cauda equina syndrome, epidural abscess, vertebral osteomyelitis, discitis, fracture, subluxation, disc herniation, DJD, spinal stenosis, dissection, AAA, pancreatitis, peptic ulcer disease, pyelonephritis, kidney stone, this is not meant to be an all-inclusive list. EKG interpreted by me (3pts min.). @ -None done X-rays interpreted by me (1pt min.). @ -None done CT interpreted by me (1pt min.). @ -CT of the spine shows degenerative lumbar spine U/S interpreted by me (1pt. min.). @ -None done What testing was considered but not performed or refused? (CT, X-rays, U/S, labs)? Why? @ -None What meds were considered but not given or refused? Why? @ -None Was smoking cessation discussed for >3mins.? @ -No Were there social determinants of health that impacted care today? How? (Homelessness, low income, unemployed, alcoholism, drug addiction, transportation, low edu. Level, literacy, decrease access to med. care, long term, rehab)? @ -No Was there de-escalation of care discussed even if they declined (Discuss DNR or withdrawal of care, Hospice)? DNR status @ -No What co-morbidities impacted this encounter? (DM, HTN, Smoking, COPD, CAD, Cancer, CVA, ARF, Chemo, Hep., AIDS, mental health diagnosis, sleep apnea, morbid obesity)? @ -Chronic back pain Was patient admitted / discharged? Hospital course, mention meds given and route, prescriptions, significant lab abnormalities, going to OR and other pertinent info. @ -53-year-old male with atraumatic back pain. Patient has no high risk features. Vital signs upon arrival are within acceptable limits. CT ordered showing degenerative spine. Patient given analgesics and steroids. Reevaluated bedside at 9:20 AM found to be in improved condition. Patient discharged told to follow-up with his spinal specialist. Did you discuss the management of the patient with other professionals (professionals i.e. , PA, QUANTITATIVE ANALYST, lab, RT, psych nurse, social media content specialist, plastics tooling engineer, teacher, information management officer, case therapist)? Give summary @ -No Was critical care preformed (if so, how long)? @ -No Undiagnosed new problem with uncertain prognosis? @ -No Drug Therapy requiring intensive monitoring for toxicity (Heparin, Nitro, Insulin, Cardizem)? @ -No Were any procedures done? @ -No Diagnosis/symptom? Acute, or Chronic, or Acute on Chronic? Uncomplicated (without systemic symptoms) or Complicated (systemic symptoms)? @ -Back strain Side effects of treatment? @ -No Exacerbation, Progression, or Severe Exacerbation? @ -No Poses a threat to life or bodily function? How? (Chest pain, [place], [place], pneumonia, PE, COPD, DKA, ARF, appy, cholecystitis, CVA, Diverticulitis, Homicidal, Suicidal, threat to staff... and all critical care pts) @ -yes Disposition Clinical Impression: Mechanical back pain Disposition: HOME SELF-CARE Condition: Fair Instructions (If sedation given, give patient instructions): Acute Low Back Pain (ED) Prescriptions: methylPREDNISolone Dose Pack [Medrol Dose Pack] 4 mg PO DIRECTED #1 packet HYDROcodone/APAP 5-325MG [[place] 5-325] 1 tab PO Q6HR PRN 3 Days #12 tab PRN Reason: Severe Pain Is patient prescribed a controlled substance at d/c from ED?: Yes If prescribed controlled substance>3 days was MAPS reviewed?: Prescribed <3 Days Referrals: Jairo Liu DO [Primary Care Provider] - 1-2 days Scot Crews DO [Doctor of Osteopathic Medicine] - 1-2 days Time of Disposition: 09:24
[2024-06-26] MEDS: MORPHINE SULFATE 4 MG/ML SYRINGE IM STA (08:11)
[2024-06-26] MEDS: DEXAMETHASONE SOD PHOSPHATE 10 MG/ML 1 ML VIAL IM STA (08:11)
--- NOTE | 2024-06-26 08:56 | CT ---
EXAMINATION TYPE: CT lumbar spine wo con DATE OF EXAM: 06/26/2024 8:35 AM COMPARISON: None. CLINICAL INDICATION: Male, 53 years old with history of back pain, back pain TECHNIQUE: Multiple axial images were obtained from the midportion of T11 through the sacroiliac vicente nts. Soft tissue and bone windows in coronal and sagittal planes were obtained and reviewed. 3-D ref ormats of the bones were created on a separate workstation and submitted for review. Contrast used: mL of , (None, if empty). Oral contrast used: (None, if empty). CT DLP: 1010.9 mGycm, Automated exposure control for dose reduction was used. FINDINGS: Alignment: There are 5 lumbar type vertebral bodies within normal alignment. Bone: No evidence of fracture is identified. Multilevel degeneration changes with osteophyte formati on, disc space narrowing, facet joint arthropathy. Discs: T12-L1: No spinal canal or neural foraminal stenosis is identified. L1-L2: No spinal canal or neural foraminal stenosis is identified. L2-L3: No spinal canal or neural foraminal stenosis is identified. L3-L4: No spinal canal or neural foraminal stenosis is identified. L4-L5: Facet joint arthropathy is present with mild to moderate bilateral neural foraminal stenosis. Spinal canal is patent. L5-S1: No spinal canal or neural foraminal stenosis is identified. Other: Atherosclerosis of the arterial vasculature. IMPRESSION: 1. No evidence for spinal fracture. 2. Mild degeneration changes spine with neural foraminal stenosis worse at left L4-L5 with mild to mo derate. 3. No significant spinal canal stenosis. [facility], , 06/26/2024 8:54 AM
[2024-06-26 09:22] VITALS: BP 159/89; PULSE 65; RESP 18; TEMP 98
== END 2024-06-26 09:45 | disposition home or self-care (01) ==
LOC: EC 07:39
DX: S39.012A Strain of muscle, fascia and tendon of lower back, initial encounter (principal); X58.XXXA Exposure to other specified factors, initial encounter
CPT/HCPCS: 72131; 99284; 96372; J2270; J1100

== ENCOUNTER → 2024-12-20 | Outpatient (CLI) | payer OTHER ==
--- NOTE | 2024-12-20 17:07 | CTL ---
EXAMINATION TYPE: CT Low Dose Lung DATE OF EXAM: 12/20/2024 4:12 PM COMPARISON: None. SCREENING VISIT: Initial CT DIAGNOSTIC QUALITY: Satisfactory CLINICAL INDICATION: Male, 54 years old with history of Z12.2 screening for malignant neoplasm Z87.89 1 personal hx, Lung screening for nicotine dependence of 2ppd x40 years, quit smoking 2022, Lung canc er screening, History of tobacco use. TECHNIQUE: Low dose computed tomography scan was performed through the chest at 1 mm thick sections a nd reconstructed images in the coronal plane at 1 mm thick sections. Contrast used: mL of , (none if empty) Oral contrast used: (none if empty) CT DLP: 137.2 mGycm, Automated exposure control for dose reduction was used. CT CTDI: 3.2 mGy, Automated exposure control for dose reduction was used. FINDINGS: LUNG NODULES: None. LUNGS: COPD: Severity: None Fibrosis: Severity: None Lymph nodes: None Other findings: None RIGHT PLEURAL SPACE: Effusion: None Calcification: None Thickening: None Pneumothorax: None LEFT PLEURAL SPACE: Effusion: None Calcification: None Thickening: None Pneumothorax: None HEART: Other: Ascending thoracic aorta at the level the main pulmonary artery measures 4.0 cm. The main pul monary artery at the bifurcation measures 2.8 cm. Heart Size: Normal Coronary calcification: Mild coronary artery calcifications present. Pericardial effusion: None OTHER FINDINGS: Upper abdomen: Normal Bony thorax: Normal Supraclavicular region: Normal IMPRESSION: 1. No suspicious changes to suggest primary or metastatic neoplasm 2. Ascending thoracic aortic aneurysm 4.[address] CHEST RECOMMENDATION: Follow-up low-dose CT chest one year CT LUNG RAD: Lung-Rad 1 Negative S modifier ascending thoracic aortic aneurysm. [facility], , 12/20/2024 5:05 PM
== END | disposition home or self-care (01) ==
LOC: RADCTMAIN 15:49
PROVIDERS: ATTEND Internal Medicine
DX: Z12.2 Encounter for screening for malignant neoplasm of respiratory organs (principal); I71.21 Aneurysm of the ascending aorta, without rupture; Z87.891 Personal history of nicotine dependence
CPT/HCPCS: 71271